=== PATIENT | female | born 2000 | race Caucasian/White ===

== ENCOUNTER 2019-06-26 08:39 | Observation (INO) ==
[~2019-06-26 08:39] MED LIST: LIDOCAINE W/ SODIUM BICARB 0.5 ML SYR SUBD PRN; Lactated Ringers 1,000 ML PRIMARY IV SCH
[2019-06-26 09:04] LABS: URINE SPECIFIC GRAVITY - MAN 1.017
[2019-06-26] MEDS ORDERED: LIDOCAINE W/ SODIUM BICARB 0.5 ML SYR ONE (09:19)
[2019-06-26] MEDS ORDERED: Lactated Ringers 1,000 ML PRIMARY IV ONE (09:19)
[2019-06-26] MEDS ORDERED: PROPOFOL 10 MG/1 ML (200 MG/20 ML) VIAL IV ONE (10:08)
[2019-06-26] MEDS ORDERED: fentaNYL Inj 100 MCG/2 ML VIAL ONE ×2 (10:09→11:18)
[2019-06-26] MEDS ORDERED: ACETAMINOPHEN 325 MG TABLET PO PRN (10:41)
--- NOTE | 2019-06-26 10:41 | ENT.OPNOTE ---
Operative Note -: See Dictated Operative Report
--- NOTE | 2019-06-26 10:48 | CRNA.PROGR ---
Anesthesia Time - Procedure/Recovery Time Start Date: 06/26/19 End Date: 06/26/19 Anesthesia : Time In: 09:34 Anesthesia : Time Out: 10:48 Anesthesia : Total Time: 74 - Total Anesthesia Time Total Anesthesia Time (minutes): 74 - Other Weight: 81.465 kg Height: 5 ft 9 in Body Mass Index (BMI): 26.5 Physical Status: P1 ([facility], [place]) Anesthesia Type: General Anesthesia : ET
--- NOTE | 2019-06-26 10:48 | CRNA.PROGR ---
Post Anesthesia Phase II - Post Anesthesia Phase II Patient Stable and Discharged To: Phase II Care Assumed By Surgeon: Robert Escobar MD Temperature: 98.4 F Pulse Rate: 100 Respiratory Rate: 14 Blood Pressure: 130/84 Pulse Ox: 97 Total Lazara Score at Discharge: 9 Post Anesthesia Discharge Criteria Met: Yes
[2019-06-26] MEDS ORDERED: HYDROcodone/APAP 7.5/325/15ml 15 ML CUP ONE (10:57)
[2019-06-26] MEDS: HYDROcodone/APAP 7.5/325/15ml 15 ML CUP PO PRN ×4 (10:58→23:15)
[2019-06-26] MEDS ORDERED: ceFAZolin Inj 2gm (Premix) 2 GM/50 ML BAG IV ONE ×2 (11:09→11:13)
[2019-06-26] MEDS ORDERED: ceFAZolin Inj 2 GM in Sodium Chloride 0.9% 100 ML IV ONE (11:11)
[2019-06-26] MEDS ORDERED: fentaNYL Inj 100 MCG/2 ML VIAL IVP PRN (11:14)
[2019-06-26] MEDS: HYDROmorphone 2 MG/1 ML IVP PRN ×5 (12:09→21:58)
[2019-06-26] MEDS: D5-1/2NS 1,000 ML PRIMARY IV SCH (13:52)
[2019-06-26] MEDS ORDERED: Own Med : Tetracaine 0.5% Lollipop PO PRN (14:45)
[2019-06-26] MEDS ORDERED: DESVENLAFAXINE SUCCINATE 100 MG PO SCH (21:00)
[2019-06-27] MEDS: HYDROmorphone 2 MG/1 ML IVP PRN ×3 (00:16→05:27)
[2019-06-27 00:37] VITALS: RESP 16
[2019-06-27] MEDS: D5-1/2NS 1,000 ML PRIMARY IV SCH (02:21)
[2019-06-27] MEDS: HYDROcodone/APAP 7.5/325/15ml 15 ML CUP PO PRN ×3 (03:05→11:06)
[2019-06-27] MEDS ORDERED: LIOTHYRONINE SODIUM 25 MCG PO SCH (05:30)
[2019-06-27] MEDS ORDERED: LIOTHYRONINE 5 MCG PO SCH (05:30)
[2019-06-27 08:46] VITALS: BP 120/66; TEMP 98.3
[2019-06-27] MEDS ORDERED: AMOXICILLIN 250 MG/5 ML PO SCH (09:00)
[2019-06-27] MEDS ORDERED: DESVENLAFAXINE SUCCINATE 100 MG PO SCH (09:00)
[2019-06-27 10:30] VITALS: O2SAT 97
== END 2019-06-27 13:01 | disposition home or self-care (01) ==
LOC: MED/SURG 08:39 → OR 08:39 → OPS 08:40
PROVIDERS: ADMIT Otolaryngology; ATTEND Otolaryngology